=== PATIENT | male | born 1975 ===

== ENCOUNTER → 2018-01-05 | Outpatient (CLI) | payer BC ==
[2018-01-05 13:28] LABS: HEMOGLOBIN A1C 5.9 % (4.5-5.6)
== END | disposition home or self-care (01) ==
LOC: C.LABMFLN 07:04
PROVIDERS: ATTEND Family Medicine
DX: R73.09 Other abnormal glucose (principal); I35.0 Nonrheumatic aortic (valve) stenosis; Z13.220 Encounter for screening for lipoid disorders